=== PATIENT | female | born 1940 | race Caucasian/White ===

== ENCOUNTER 2017-12-14 12:41 | Inpatient (IN) | payer OTHER ==
[~2017-12-14] VITALS: Ht 172.7 cm; Wt 68.9 kg
[~2017-12-14 12:41] MED LIST: ALBMDI INH; GLU500 PO
[2017-12-14 12:45] VITALS: BP_SYST 150
[2017-12-14 13:25] LABS: BASOPHILS % (AUTO) 0.7 % (0.0-2.0); EOSINOPHILS # (AUTO) 0.4 K/uL (0.0-0.4); HEMATOCRIT 32.3 % (36-48); HEMOGLOBIN 10.3 g/dL (12.0-16.0); LYMPHOCYTES # (AUTO) 1.2 K/uL (1.0-5.5); LYMPHOCYTES % (AUTO) 16.4 % (20.5-51.5); MEAN CORPUSCULAR HEMOGLOBIN 26 pg (27-31); MEAN CORPUSCULAR HGB CONC 32 % (32-36); MEAN CORPUSCULAR VOLUME 82 fL (79.0-98.0); MONOCYTES # (AUTO) 0.5 K/uL (0.0-1.0); MONOCYTES % (AUTO) 7.7 % (1.7-9.3); NEUTROPHILS % (AUTO) 70.2 % (40.0-70.0); PLATELET COUNT (AUTO) 234 K/uL (130-430); RED BLOOD CELL COUNT(AUTO) 3.96 MIL/uL (4.2-6.2); RED CELL DISTRIBUTION WIDTH 19.2 % (9.0-15.0); WHITE BLOOD COUNT (AUTO) 7.1 K/uL (4.8-10.8)
[2017-12-14 13:37] LABS: PROTHROMBIN TIME 9.9 SECS (9.5-12.5)
[2017-12-14 13:38] LABS: ANION GAP 9 (5-15); CALCIUM 8.9 mg/dL (8.4-11.0); CHLORIDE 106 mmol/L (98-107); CREATININE 1.16 mg/dL (0.55-1.30); GLUCOSE 173 mg/dL (70-99); POTASSIUM 3.9 mmol/L (3.5-5.1); SODIUM SERUM 139 mmol/L (136-145); UREA NITROGEN, BLOOD 21 mg/dL (8-21)
[2017-12-14 13:44] LABS: ALANINE AMINOTRANSFERASE 10 U/L (12-78); ALBUMIN 3.2 g/dL (3.4-4.8); ASPARTATE AMINOTRANSFERASE 13 U/L (10-37); TOTAL BILIRUBIN 0.2 mg/dL (0.0-1.0)
[2017-12-14 15:14] LABS: BILIRUBIN,URINE NEGATIVE (NEGATIVE); BLOOD, URINE NEGATIVE (NEGATIVE); CLARITY/URINE CLEAR (CLEAR); COLOR,URINE YELLOW (YELLOW); GLUCOSE,URINE NEGATIVE (NEGATIVE); KETONES,URINE NEGATIVE (NEGATIVE); LEUKOCYTE ESTERASE ,URINE NEGATIVE (NEGATIVE); NITRITE, URINE NEGATIVE (NEGATIVE); PROTEIN URINE 1+ (NEGATIVE)
[2017-12-14 15:23] LABS: BACTERIA,URINE FEW /HPF (None Seen); RBC,URINE 0-3 /HPF (0-3); WBC,URINE 0-3 /HPF (0-3)
[2017-12-14] MEDS ORDERED: ATEN-41 PO (16:30)
[2017-12-14] MEDS ORDERED: BENA1TAB19 PO (16:30)
[2017-12-14] MEDS ORDERED: ISOS30TA6 PO (16:30)
[2017-12-14] MEDS ORDERED: FERR159T2 PO (16:30)
[2017-12-14] MEDS ORDERED: BUPR-120 PO (16:30)
[2017-12-14] MEDS ORDERED: SERT50TA12 PO (16:30)
[2017-12-14] MEDS ORDERED: ASPI-1153 PO (16:30)
[2017-12-14 16:51] VITALS: BP_SYST 140
[2017-12-14] MEDS ORDERED: DEXTROSE 50% JECT 50 ML DISP.SYRIN IVP PRN (19:00)
[2017-12-14] MEDS ORDERED: FUROSEMIDE 20 MG/2 ML VIAL IVP ONE (19:00)
[2017-12-14 20:00] VITALS: BP_SYST 138
[2017-12-14] MEDS: METOPROLOL TARTRATE 25 MG TABLET PO SCH (22:37)
[2017-12-14] MEDS: INSULIN REGULAR, HUMAN 100 UNITS/ML, 10 ML VIAL (novoLIN R) SUBCUT PRN (23:36)
[2017-12-15 00:49] VITALS: BP_SYST 143
[2017-12-15] MEDS: INSULIN REGULAR, HUMAN 100 UNITS/ML, 10 ML VIAL (novoLIN R) SUBCUT PRN ×2 (06:35→23:48)
[2017-12-15 08:44] VITALS: BP_SYST 127
[2017-12-15] MEDS: buPROPion HCL 150 MG XL TAB PO SCH (08:57)
[2017-12-15] MEDS: SERTRALINE HCL 50 MG TABLET PO SCH (08:57)
[2017-12-15] MEDS: ATENOLOL 25 MG TABLET(TENORMIN) PO SCH (08:58)
[2017-12-15] MEDS: ISOSORBIDE MONONITRATE 30 MG TAB.ER.24H PO SCH (08:58)
[2017-12-15] MEDS: METOPROLOL TARTRATE 25 MG TABLET PO SCH (08:59)
[2017-12-15] MEDS ORDERED: FUROSEMIDE 40 MG/4 ML VIAL IVP SCH (09:00)
[2017-12-15] MEDS ORDERED: ALBUTEROL SULFATE 0.083% 2.5 MG/3 ML VIAL.NEB INH PRN (09:00)
[2017-12-15] MEDS ORDERED: methylPREDNISolone SOD SUCC/PF 62.5 MG/ML VIAL IVP ONE (09:00)
[2017-12-15] MEDS ORDERED: ALBUTEROL SULFATE 0.083% 2.5 MG/3 ML VIAL.NEB INH ONE (09:00)
[2017-12-15] MEDS ORDERED: ASPIRIN 325 MG TABLET PO SCH (09:00)
[2017-12-15] MEDS: metFORMIN HCL 500 MG TABLET PO SCH ×2 (09:37→19:22)
[2017-12-15] MEDS: ALBUTEROL SULFATE 0.083% 2.5 MG/3 ML VIAL.NEB INH SCH ×4 (11:01→23:00)
[2017-12-15 11:06] VITALS: BP_SYST 127
[2017-12-15 12:05] VITALS: BP_SYST 87
[2017-12-15] MEDS ORDERED: ONDANSETRON HCL 4 MG/2 ML VIAL IVP PRN (14:45)
[2017-12-15] MEDS: KETOROLAC TROMETHAMINE 15 MG VIAL IVP PRN ×2 (14:59→21:04)
[2017-12-15] MEDS: methylPREDNISolone SOD SUCC/PF 62.5 MG/ML VIAL IVP SCH ×2 (14:59→21:03)
[2017-12-15 16:05] VITALS: BP_SYST 94
[2017-12-15 20:00] VITALS: BP_SYST 104
[2017-12-16 00:50] VITALS: BP_SYST 107
[2017-12-16] MEDS: INSULIN REGULAR, HUMAN 100 UNITS/ML, 10 ML VIAL (novoLIN R) SUBCUT PRN (06:10)
[2017-12-16] MEDS: methylPREDNISolone SOD SUCC/PF 62.5 MG/ML VIAL IVP SCH (06:13)
[2017-12-16] MEDS: ALBUTEROL SULFATE 0.083% 2.5 MG/3 ML VIAL.NEB INH SCH (07:13)
[2017-12-16 08:00] VITALS: BP_SYST 119
[2017-12-16] MEDS: ISOSORBIDE MONONITRATE 30 MG TAB.ER.24H PO SCH (08:45)
[2017-12-16] MEDS: SERTRALINE HCL 50 MG TABLET PO SCH (08:45)
[2017-12-16] MEDS: buPROPion HCL 150 MG XL TAB PO SCH (08:45)
[2017-12-16] MEDS: metFORMIN HCL 500 MG TABLET PO SCH (08:45)
[2017-12-16] MEDS: ATENOLOL 25 MG TABLET(TENORMIN) PO SCH (08:46)
[2017-12-16] MEDS ORDERED: FUROSEMIDE 20 MG TABLET PO SCH (09:00)
[2017-12-16] MEDS ORDERED: ASPIRIN 325 MG TABLET PO SCH (09:00)
[2017-12-16] MEDS ORDERED: COMMUNICATION ORDER XX ONE (09:30)
[2017-12-16 09:46] VITALS: BP_SYST 119
[2017-12-16] MEDS ORDERED: ASPIRIN 81 MG TAB.CHEW PO ONE (10:15)
[2017-12-17] MEDS ORDERED: ASPIRIN 81 MG TAB.CHEW PO SCH (09:00)
== END 2017-12-16 11:05 | disposition home or self-care (01) | DRG 191 ==
LOC: SED 12:41 → STU 16:18
PROVIDERS: ADMIT Internal Medicine Hospice and Palliative Medicine; ATTEND Internal Medicine Hospice and Palliative Medicine
DX: J44.1 Chronic obstructive pulmonary disease with (acute) exacerbation (principal); I42.0 Dilated cardiomyopathy; Z79.899 Other long term (current) drug therapy; E11.9 Type 2 diabetes mellitus without complications; M54.2 Cervicalgia; E78.5 Hyperlipidemia, unspecified; I99.8 Other disorder of circulatory system; F17.210 Nicotine dependence, cigarettes, uncomplicated; I11.0 Hypertensive heart disease with heart failure; I44.7 Left bundle-branch block, unspecified; I50.9 Heart failure, unspecified; Z79.82 Long term (current) use of aspirin
CPT/HCPCS: 36415; 36600; 71045; 80053; 81000-TC; 82550-TC; 82803-TC; 82962; 83880; 84484; 85025; 85610-TC; 85730-TC; 93005; 93306; 94640; 99285; J1815; J1885; J1940; J2405; J2930; J7613